=== PATIENT | male | born 2000 | race Caucasian/White ===

== ENCOUNTER 2020-07-03 14:00 | Outpatient (CLI) | payer MEDICAID | END 2020-07-03 23:59 | disposition home or self-care (01) | LOC: COV 14:00 | PROVIDERS: ATTEND Family Medicine | DX: R05 Cough (principal); R06.02 Shortness of breath; M79.10 Myalgia, unspecified site; R53.83 Other fatigue; R68.83 Chills (without fever); R19.7 Diarrhea, unspecified; R11.0 Nausea; Z20.828 Contact with and (suspected) exposure to other viral communicable diseases ==

== ENCOUNTER 2020-10-23 18:54 | Emergency (ER) | payer MEDICAID ==
[2020-10-23 19:00] VITALS: BP 140/83
[2020-10-23] MEDS ORDERED: SULFAMETH/TRIMETH DS 800/160 MG TABLET PO STA (19:20)
--- NOTE | 2020-10-23 19:22 | ED Physician Documentation ---
History of Present Illness - Stated complaint Stated Complaint: MALE - Chief complaint Chief Complaint: General - History obtained from History obtained from: Patient - Additonal information Additional information: 21-year-old male presents the emergency department for evaluation of what he thinks may be an ingrown hair or early abscess to the right scrotum. He reports that this afternoon after urinating he was" tucking things away" and felt pain in his scrotum. He looked and noted that there was a very small pustule kind of near the base of the penis. No history of similar. NO hx of STI. No fevers dysuria urgency or frequency. Presents to the emergency department for further evaluation. PD PAST MEDICAL HISTORY - Past Medical History Past Medical History: No - Present Medications Home Medications: Ambulatory Orders Medication Instructions Recorded Confirmed Mupirocin 22 gm TP BID #1 oint...g. 10/23/20 Sulfamethox/Trimeth 800/160 1 each PO BID #14 tablet 10/23/20 [Bactrim Ds 800/160] - Allergies Allergies/Adverse Reactions: Allergies Allergy/AdvReac Type Severity Reaction Status Date / Time No Known Drug Allergies Allergy Verified 10/23/20 19:00 - Social History Does the pt smoke?: No Smoking Status: Never smoker PD ED PE EXPANDED - General General: Alert, No acute distress - Male Male : Circumcised, Normal lie/cremastaric, Tenderness (Very small pustule 3mm superior edge of scrotum near base of penis. No surrounding erythema or induration. no drainage. ). No: Discharge, Testicular Mass Results - Vitals Vitals: Vital Signs - 24 hr 10/23/20 18:58 Temperature 36.3 C L Heart Rate 80 Respiratory 18 Rate Blood Pressure 140/83 H O2 Saturation 98 Oxygen O2 Source Room air PD MEDICAL DECISION MAKING - ED course Complexity details: re-evaluated patient, considered differential, d/w patient ED course: 20-year-old male presents the emergency department for evaluation of a pustule on his scrotum near the base of penis on right side. First noted today after urinating. The pustule has no surrounding erythema or induration. This likely reflects mild folliculitis. Patient is advised to take warm sitz bath and apply antibiotic ointment to the lesion. will rx bactrim. Exam and history is not consistent with scrotal cellulitis or early Cameron's gangrene. Emergent return precautions were discussed Departure - Departure Disposition: 01 Home, Self Care Clinical Impression: Carbuncle, scrotum Condition: Stable Record reviewed to determine appropriate education?: Yes Prescriptions: Sulfamethox/Trimeth 800/160 [Bactrim Ds 800/160] 1 each PO BID #14 tablet Mupirocin 22 gm TP BID #1 oint...g. Comments: Sebas please fill the prescription for the antibiotics and take twice daily as directed. I do recommend that you do warm salt water soaks or Epsom bath once twice a day. Please apply the antibiotic ointment to the skin lesion twice daily. If at any point you have increased swelling, pain redness or concerns of infection please return immediately to the ER.
== END 2020-10-23 19:36 | disposition home or self-care (01) ==
LOC: ED 18:54
DX: N49.2 Inflammatory disorders of scrotum (principal)
CPT/HCPCS: 99281; 99282; A9270

== ENCOUNTER 2021-04-27 08:35 | Emergency (ER) | payer MEDICAID ==
[2021-04-27] MEDS ORDERED: ONDANSETRON 4 MG/2 ML VIAL IVP STA (09:05)
[2021-04-27] MEDS ORDERED: MORPHINE 2 MG/ML CARPUJECT IVP STA (09:05)
[2021-04-27] MEDS ORDERED: SODIUM CHLORIDE 0.9% 1,000 ML IV STA (09:05)
[2021-04-27] MEDS ORDERED: PANTOPRAZOLE 40 MG VIAL IVP STA (09:05)
--- NOTE | 2021-04-27 09:07 | ED Physician Documentation ---
PD HPI NVD - Stated complaint Stated Complaint: N/V - Chief complaint Chief Complaint: Abd Pain - History obtained from History obtained from: Patient, Family (mom) - Additonal information Additional information: Previously healthy 20-year-old gentleman with history of gallbladder polyps was having a headache last night and drank a glass of wine and took a single dose of ibuprofen. Neither of those he does frequently. This morning he awoke feeling off but then started vomiting. With the second episode of vomiting he developed coffee-ground emesis and bright red blood. He notes that he is been constipated for a few days but denies melena. Review of Systems Ten Systems: 10 systems reviewed and negative Constitutional: denies: Fever, Chills, Fatigue Cardiac: denies: Chest pain / pressure, Palpitations Respiratory: denies: Dyspnea, Cough PD PAST MEDICAL HISTORY - Present Medications Home Medications: Ambulatory Orders Medication Instructions Recorded Confirmed Mupirocin 22 gm TP BID #1 oint...g. 10/23/20 Sulfamethox/Trimeth 800/160 1 each PO BID #14 tablet 10/23/20 [Bactrim Ds 800/160] HYDROcod/ACETAM 5/325 [Miranda 5/325] 1 - 2 tab PO Q6H PRN #10 tablet 04/27/21 Omeprazole [PriLOSEC] 20 mg PO DAILY #30 cap 04/27/21 Ondansetron Odt [Zofran] 4 mg TL Q6H PRN #10 tablet 04/27/21 - Allergies Allergies/Adverse Reactions: Allergies Allergy/AdvReac Type Severity Reaction Status Date / Time No Known Drug Allergies Allergy Verified 04/27/21 08:53 - Social History Does the pt smoke?: No Smoking Status: Never smoker PD ED PE NORMAL - Vitals Vital signs reviewed: Yes - General General: Alert and oriented X 3, No acute distress - HEENT HEENT: PERRL, EOMI - Neck Neck: Supple, no meningeal sign, No bony TTP - Cardiac Cardiac: RRR, No murmur - Respiratory Respiratory: No respiratory distress, Clear bilaterally - Abdomen Abdomen: Normal bowel sounds, Soft, Non tender - Back Back: No CVA TTP, No spinal TTP - Derm Derm: Normal color, Warm and dry - Extremities Extremities: No edema, No calf tenderness / cord - Neuro Neuro: Alert and oriented X 3, Normal speech Results - Vitals Vitals: Vital Signs - 24 hr 04/27/21 04/27/21 04/27/21 08:45 09:28 09:30 Temperature 36.6 C Heart Rate 104 H Respiratory 16 Rate Blood Pressure 132/84 H 121/66 138/61 H O2 Saturation 99 04/27/21 10:04 Temperature Heart Rate 72 Respiratory 16 Rate Blood Pressure 122/67 O2 Saturation 100 Oxygen O2 Source Room air - Labs Labs: Laboratory Tests 04/27/21 04/27/21 04/27/21 09:15 09:15 09:15 WBC 14.3 H RBC 4.95 Hgb 15.8 Hct 45.7 MCV 92.3 MCH 31.9 H MCHC 34.6 RDW 12.2 Plt Count 195 MPV 11.8 H Neut # (Auto) 11.9 H Lymph # (Auto) 1.3 L [place] # (Auto) 0.9 Eos # (Auto) 0.1 Baso # (Auto) 0.0 Absolute Nucleated RBC 0.00 Nucleated RBC % 0.0 Sodium 139 Potassium 4.3 Chloride 100 L Carbon Dioxide 24 Anion Gap 15.0 H BUN 18 Creatinine 1.5 H Estimated GFR (MDRD) 60 L Glucose 85 Calcium 9.9 Total Bilirubin 1.8 H AST 19 ALT 17 Alkaline Phosphatase 44 Total Protein 7.9 Albumin 5.3 Globulin 2.6 Albumin/Globulin Ratio 2.0 Lipase 20 L Ethyl Alcohol 6.7 Blood Type O POSITIVE Antibody Screen NEGATIVE 04/27/21 11:35 WBC RBC Hgb 14.8 Hct 43.0 MCV MCH MCHC RDW Plt Count MPV Neut # (Auto) Lymph # (Auto) [place] # (Auto) Eos # (Auto) Baso # (Auto) Absolute Nucleated RBC Nucleated RBC % Sodium Potassium Chloride Carbon Dioxide Anion Gap BUN Creatinine Estimated GFR (MDRD) Glucose Calcium Total Bilirubin AST ALT Alkaline Phosphatase Total Protein Albumin Globulin Albumin/Globulin Ratio Lipase Ethyl Alcohol Blood Type Antibody Screen PD MEDICAL DECISION MAKING - ED course ED course: 20-year-old gentleman with vomiting and hematemesis and coffee-ground emesis, could be ulcer or Maggy-Mcallister. Less likely the latter given that he had only one episode of vomiting prior to noting blood. Serial H&H here done without significant change given the fact especially that he had a liter of IV fluids. Feeling better after meds. The patient and family were counseled as to the diagnosis and need for follow- up. I counseled the patient with regard to signs and symptoms that would necessitate an urgent reevaluation in the emergency department. They understand they are welcome to return at any time if worse or if not improving as expected. This document was made in part using voice recognition software. While efforts are made to proofread this documents, sound alike and grammatical errors may occur. Departure - Departure Disposition: Home, Self Care Clinical Impression: Gastritis Qualifiers: Gastritis type: unspecified gastritis Chronicity: acute Gastritis bleeding: with bleeding Qualified Code(s): K29.01 - Acute gastritis with bleeding Vomiting Qualifiers: Vomiting type: unspecified Vomiting Intractability: non-intractable Nausea presence: with nausea Qualified Code(s): R11.2 - Nausea with vomiting, unspecified Hematemesis Qualifiers: Nausea presence: with nausea Qualified Code(s): K92.0 - Hematemesis Condition: Good Record reviewed to determine appropriate education?: Yes Instructions: ED PUD Vs Gastritis Prescriptions: HYDROcod/ACETAM 5/325 [Miranda 5/325] 1 - 2 tab PO Q6H PRN #10 tablet PRN Reason: Pain Omeprazole [PriLOSEC] 20 mg PO DAILY #30 cap Ondansetron Odt [Zofran] 4 mg TL Q6H PRN #10 tablet PRN Reason: Nausea / Vomiting Comments: Avoid alcohol, nonsteroidal inflammatory drugs such as ibuprofen or Aleve, spicy food. Return for new or worsening symptoms. Or if symptoms are persistent. Hopefully though the nausea medicine and the stomach medication will resolve your symptoms though. I am prescribing a short course of narcotic pain medication for you. These are potentially dangerous and addictive medications that should be used carefully. These medications may constipate you. Take an [id number] stool softener (docusate) twice daily with plenty of water while taking these medications. If you go 24 hours without a bowel movement, take [id number] miralax, per package instructions. Do not drink or drive while taking these medications. If you received narcotic or sedating medications while in the emergency department, do not drive for 24 hours. Store this medication in a safe, secure place and out of reach of children. It is a violation of federal law to give or sell this medication to another person or to use in a manner other than prescribed. The ED will not refill narcotic prescriptions, including prescriptions lost or stolen. To dispose of unwanted medications: 1. [facility] at [address] in [place] has a medication drop box. They accept prescription medications (in pill form) Thursday through Thursday 9:00 a.m. to 5:00 p.m. 2. The [facility] accepts prescription medications (in pill form only) for disposal year round. Call for more information. 3. Contact the [facility] for the next [facility] sponsored prescription drug collection event. , [phone], or [phone]; Note that many narcotic pain relievers also contain Tylenol/acetaminophen. Please ensure that your total dose of acetaminophen from all sources does not exceed 3 g (3000 mg) per day. Discharge Date/Time: 04/27/21 12:10
[2021-04-27 09:43] LABS: BASOPHILS % (AUTO) 0.3 %; EOSINOPHILS # (AUTO) 0.1 10^3/uL (0.0-0.7); EOSINOPHILS % (AUTO) 0.5 %; HCT - HEMATOCRIT 45.7 % (42.0-52.0); HGB - HEMOGLOBIN 15.8 g/dL (14.0-18.0); LYMPHOCYTES # (AUTO) 1.3 10^3/uL (1.5-3.5); LYMPHOCYTES % (AUTO) 9.1 %; MEAN CORPUSCULAR HEMOGLOBIN 31.9 pg (27.0-31.0); MEAN CORPUSCULAR HGB CONC 34.6 g/dL (32.0-36.0); MEAN CORPUSCULAR VOLUME 92.3 fL (80.0-94.0); MEAN PLATELET VOLUME 11.8 fL (7.4-11.4); MONOCYTES # (AUTO) 0.9 10^3/uL (0.0-1.0); MONOCYTES % (AUTO) 6.5 %; NEUTROPHILS # (AUTO) 11.9 10^3/uL (1.5-6.6); NEUTROPHILS % (AUTO) 83.2 %; PLT - PLATELET COUNT 195 10^3/uL (130-450); RED BLOOD COUNT 4.95 10^6/uL (4.70-6.10); RED CELL DISTRIBUTION WIDTH 12.2 % (12.0-15.0); WHITE BLOOD COUNT 14.3 x10^3/uL (4.8-10.8)
[2021-04-27 09:53] LABS: ALBUMIN 5.3 g/dL (3.2-5.5); BILIRUBIN,TOTAL 1.8 mg/dL (0.2-1.0); CALCIUM 9.9 mg/dL (8.5-10.3); CREATININE 1.5 mg/dL (0.6-1.2); ETOH - ETHANOL 6.7 mg/dL; POTASSIUM 4.3 mmol/L (3.5-5.0); TOTAL PROTEIN 7.9 g/dL (6.7-8.2)
[2021-04-27 10:30] VITALS: BP 122/67
[2021-04-27 11:52] LABS: HGB - HEMOGLOBIN 14.8 g/dL (14.0-18.0)
== END 2021-04-27 12:10 | disposition home or self-care (01) ==
LOC: ED 08:35
DX: K29.01 Acute gastritis with bleeding (principal); K92.0 Hematemesis
CPT/HCPCS: 36415; 80053; 80320; 83690; 85014; 85018; 85025; 86850; 86900; 86901; 96374; 96375; 99284

== ENCOUNTER 2022-04-21 11:51 | Emergency (ER) | payer MEDICAID ==
[2022-04-21 12:20] LABS: BASOPHILS # (AUTO) 0.1 10^3/uL (0.0-0.1); BASOPHILS % (AUTO) 0.8 %; EOSINOPHILS # (AUTO) 0.2 10^3/uL (0.0-0.7); EOSINOPHILS % (AUTO) 2.5 %; HCT - HEMATOCRIT 46.1 % (42.0-52.0); HGB - HEMOGLOBIN 15.8 g/dL (14.0-18.0); LYMPHOCYTES # (AUTO) 2.5 10^3/uL (1.5-3.5); LYMPHOCYTES % (AUTO) 42.3 %; MEAN CORPUSCULAR HEMOGLOBIN 32.4 pg (27.0-31.0); MEAN CORPUSCULAR HGB CONC 34.3 g/dL (32.0-36.0); MEAN CORPUSCULAR VOLUME 94.5 fL (80.0-94.0); MEAN PLATELET VOLUME 11.2 fL (7.4-11.4); MONOCYTES # (AUTO) 0.6 10^3/uL (0.0-1.0); MONOCYTES % (AUTO) 9.3 %; NEUTROPHILS # (AUTO) 2.7 10^3/uL (1.5-6.6); NEUTROPHILS % (AUTO) 44.9 %; PLT - PLATELET COUNT 221 10^3/uL (130-450); RED BLOOD COUNT 4.88 10^6/uL (4.70-6.10); RED CELL DISTRIBUTION WIDTH 12.7 % (12.0-15.0); WHITE BLOOD COUNT 5.9 x10^3/uL (4.8-10.8)
[2022-04-21 12:45] LABS: BILIRUBIN,TOTAL 0.8 mg/dL (0.2-1.0); CALCIUM 9.9 mg/dL (8.5-10.3); POTASSIUM 3.9 mmol/L (3.5-5.0); TOTAL PROTEIN 7.5 g/dL (6.7-8.2)
[2022-04-21 12:48] LABS: BILIRUBIN,URINE NEGATIVE (NEGATIVE); GLUCOSE, URINE (UA) NEGATIVE (NEGATIVE); KETONES,URINE (UA) NEGATIVE (NEGATIVE); LEUKOCYTE ESTERASE, URINE NEGATIVE (NEGATIVE); NITRITE,URINE NEGATIVE (NEGATIVE); OCCULT BLOOD,URINE NEGATIVE (NEGATIVE); PH,URINE 7.5 PH (5.0-7.5); PROTEIN,URINE NEGATIVE (NEGATIVE); UROBILINOGEN,URINE 0.2 (NORMAL) E.U./dL (NORMAL)
[2022-04-21 12:55] LABS: CLARITY,URINE CLEAR (CLEAR)
--- NOTE | 2022-04-21 13:06 | ED Physician Documentation ---
PD HPI MALE - Stated complaint Stated Complaint: ABD PX - Chief complaint Chief Complaint: Abd Pain - History obtained from History obtained from: Patient - History of Present Illness Timing - onset: How many days ago (2) Timing - details: Intermittant Associated symptoms: No: Dysuria, Urinary frequency, Unable to urinate, Testiclar pain, Scrotal swelling - Additional information Additional information: 21yoM with PMH "chronic non-infectious prostatitis" presents for 2 days of intermittent suprapubic pain. Present after urinating and ejaculating. No medications taken for symptoms. Currently asymptomatic. States he is here to make sure he doesn't have an infection. Denies STI history or concern for STIs. Denies fevers, dysuria, hematuria, penile pain, penile discharge. Review of Systems Ten Systems: 10 systems reviewed and negative Constitutional: denies: Fever, Chills, Myalgias, Fatigue, Weight Loss, Sweats, Reviewed and negative, Other Eyes: denies: Loss of vision, Decreased vision, Photophobia, Discharge, Irritation, Reviewed and negative, Other Ears: denies: Loss of hearing, Ear pain, Drainage/discharge, Tinnitus/ringing, Foreign body, Reviewed and negative, Other Throat: denies: Dental pain / toothache, Oral lesions / sores, Sore throat, Swollen tonsils, Swallowed foreign body, Reviewed and negative, Other Cardiac: denies: Chest pain / pressure, Palpitations, Pedal edema, Calf pain, Reviewed and negative, Other Respiratory: denies: Dyspnea, Cough, Hemoptysis, Wheezing, Reviewed and negative, Other GI: reports: Abdominal Pain (suprapubic). denies: Nausea, Vomiting, Constipation, Diarrhea, Bloody / black stool : denies: Dysuria, Frequency, Hesitancy, Unable to Void, Incontinent, Hematuria, Discharge, Testicular pain, Testicular mass Skin: denies: Rash, Lesions, Abrasion (s), Laceration (s), Bite / sting, Revi ewed and negative, Other Musculoskeletal: denies: Neck pain, Back pain, Extremity pain, Joint pain, Extremity swelling, Joint swelling, Pain with weight bearing, Reviewed and negative, Other Neurologic: denies: Generalized weakness, Focal weakness, Numbness, Difficulty speaking, Near syncope, Syncope, Seizure, Confused, Altered mental status, Unres ponsive, Headache, Head injury, LOC, Reviewed and negative, Other PD PAST MEDICAL HISTORY - Present Medications Home Medications: Ambulatory Orders Medication Instructions Recorded Confirmed No Known Home Medications 04/21/22 04/21/22 - Allergies Allergies/Adverse Reactions: Allergies Allergy/AdvReac Type Severity Reaction Status Date / Time No Known Drug Allergies Allergy Verified 04/21/22 12:04 - Social History Does the pt smoke?: No Smoking Status: Never smoker Does the pt drink ETOH?: Yes Does the pt have substance abuse?: Yes PD ED PE NORMAL - Vitals Vital signs reviewed: Yes - General General: Alert and oriented X 3, No acute distress, Well developed/nourished, Other - HEENT HEENT: Atraumatic, PERRL, EOMI, Ears normal, Moist mucous membranes, Pharynx benign, Dentition benign, Other - Neck Neck: Supple, no meningeal sign, No bony TTP, No adenopathy, Thyroid normal, No JVD, No bruit, C-Spine cleared by NEXUS criteria, Other - Cardiac Cardiac: RRR, No murmur, No gallop, No rub, Strong equal pulses, Other - Respiratory Respiratory: No respiratory distress, Clear bilaterally, Other - Abdomen Abdomen: Normal bowel sounds, Soft, Non tender, Non distended, No organomegaly, Other - Male Male : Pt declined - Back Back: No CVA TTP, No spinal TTP, Other - Derm Derm: Normal color, Warm and dry, No rash, Other - Neuro Neuro: Alert and oriented X 3, podiatrist orthopedic 2-12 intact, No motor deficit, No sensory deficit, Normal speech, Other - Psych Psych: Normal mood, Normal affect, Other Results - Vitals Vitals: Vital Signs - 24 hr 04/21/22 04/21/22 04/21/22 11:59 13:28 15:31 Temperature 36.4 C L Heart Rate 72 55 L 75 Respiratory 16 15 17 Rate Blood Pressure 146/69 H 125/73 125/75 O2 Saturation 100 97 100 Oxygen O2 Source Room air - Labs Labs: Laboratory Tests 04/21/22 04/21/22 04/21/22 12:15 12:15 12:30 WBC 5.9 RBC 4.88 Hgb 15.8 Hct 46.1 MCV 94.5 H MCH 32.4 H MCHC 34.3 RDW 12.7 Plt Count 221 MPV 11.2 Neut # (Auto) 2.7 Lymph # (Auto) 2.5 [place] # (Auto) 0.6 Eos # (Auto) 0.2 Baso # (Auto) 0.1 Absolute Nucleated RBC 0.00 Nucleated RBC % 0.0 Sodium 140 Potassium 3.9 Chloride 100 L Carbon Dioxide 29 Anion Gap 11.0 BUN 14 Creatinine 1.0 Estimated GFR (MDRD) 94 Glucose 102 H Calcium 9.9 Total Bilirubin 0.8 AST 16 ALT 13 Alkaline Phosphatase 54 Total Protein 7.5 Albumin 5.0 Globulin 2.5 Albumin/Globulin Ratio 2.0 Lipase 27 Urine Color YELLOW Urine Clarity CLEAR Urine pH 7.5 Ur Specific Supai 1.015 Urine Protein NEGATIVE Urine Glucose (UA) NEGATIVE Urine Ketones NEGATIVE Urine Occult Blood NEGATIVE Urine Nitrite NEGATIVE Urine Bilirubin NEGATIVE Urine Urobilinogen 0.2 (NORMAL) Ur Leukocyte Esterase NEGATIVE Ur Microscopic Review NOT INDICATED Urine Culture Comments NOT INDICATED PD MEDICAL DECISION MAKING - ED course ED course: Patient with 2 days of intermittent pain after urinating and ejaculating, asymptomatic at this time. No physical exam abnormalities identified on exam, abdomen is soft with no reproducible tenderness to palpation. Urinalysis negative for acute findings, no evidence of infection. Patient declines STI testing, states that he has no concern that that is going on today. Ultrasound negative for acute findings. Patient informed of all results, he is happy to know that he does not have any obvious sign of infection. He will follow-up with his urologist for further investigation of his symptoms. Departure - Departure Disposition: 01 Home, Self Care Clinical Impression: Acute suprapubic pain Instructions: ED Abdominal Pain Unkn Cause Male Discharge Date/Time: 04/21/22 15:33
--- NOTE | 2022-04-21 15:21 | Ultrasound Report ---
PROCEDURE: Testicle w/Doppler Limited INDICATIONS: SUPRAPUBIC PN, EJACULATORY PN TECHNIQUE: Real-time scanning was performed of the scrotum and testicles, with image documentation. Color and p ulse Doppler interrogation was performed of both testicles. COMPARISON: None. FINDINGS: Right: Testicle is normal in size at 5.7 x 2.6 x 2.9 cm, and homogenous in echotexture. Epididymis is normal in overall size and morphology. No hydrocele or varicoceles. Overlying scrotal skin is no rmal in thickness. Left: Testicle is normal in size at 5.2 x 2.8 x 3.0 cm, and homogeneous in echotexture. Epididymis is normal in overall size and morphology. No hydrocele or varicoceles. Overlying scrotal skin is no rmal in thickness. Doppler: Color and pulse Doppler demonstrate normal and symmetric arterial flow in both testicles. IMPRESSION: 1. Normal scrotal ultrasound. 2. Preliminary results given by the shoe trimmer to the ordering provider immediately following the st udy. Reviewed by: Jenniffer Horn MD on 04/21/2022 3:20 PM PDT Approved by: Jenniffer Horn MD on 04/21/2022 3:20 PM PDT Station ID: [id number]
[2022-04-21 15:33] VITALS: BP 125/75
== END 2022-04-21 15:33 | disposition home or self-care (01) ==
LOC: ED 11:51
DX: R10.2 Pelvic and perineal pain (principal)
CPT/HCPCS: 36415; 80053; 81001; 81003; 83690; 85025; 87086; 93976; 99282; 99284